=== PATIENT | male | born 1990 ===

== ENCOUNTER 2021-09-27 12:01 | Inpatient (IN) | payer MEDICAID ==
[~2021-09-27] VITALS: Ht 180.3 cm; Wt 154.9 kg
--- NOTE | 2021-09-27 12:00 | NUR ---
PT WAS A DIRECT ADMIT FROM [place] [facility]IA [facility], TOA WAS 1142. PER REPORT FROM EDUARDO ORTIZ, PT CAME TO [place] WITH C/O LEFT SHOULDER BLADE PAIN, WHO WAS THEN PLACED ON BIPAP, DECOMPENSATED ON BIPAP WITH SUSPECTED FLASH PULMONARY EDEMA, ASPIRATED AND THEN INTUBATED. VENT SETTINGS AT TIME OF REPORT WERE 24/580/8/98%. 8.0 PLACED AT 23 AT TEETH. COVID NEGATIVE. RT IJ TRIPLE LUMEN PLACED, AND IO IN PLACE, BLOOD CULTURES SENT. PT WAS GIVEN ATIVAN, KETAMINE, 40 LASIX AND 125 OF SOLUMEDROL. NO CTPE PERFORMED. FLAGYL GIVEN DURING [facility]. PT WAS METH POSITIVE WITH THEIR TOX SCREEN. PT WAS TRANSPORTED ON 40 OF PROPOFOL AND FENTANYL INFUSION. NO FAMILY CONTACTS AVAILABLE. PT HAS A HX OF SCHIZOPHRENIA, BIPOLAR, HTN PER REPORT. PT IS ALSO APPARENTLY FROM [place] BUT WAS USING "[facility]" IN [place]. PROPOFOL DRIP CONTINUED FROM TRANSPORTATION, NO SEDATION HOLIDAY DUE TO HIGH VENT SETTINGS PER . PT VENT SETTINGS AT TOA AC/VC 16/450/85%/12
[2021-09-27 15:32] LABS: PCO2 Arterial 58.5 mmHg (35-45); PO2 Arterial 53.5 mmHg (80-100); pH Blood Arterial 7.36 (7.35-7.45)
--- NOTE | 2021-09-27 15:44 | NUR ---
NOTIFIED OF ABG RESULTS, PO2 AT 53. VENT SETTINGS CHANGED TO 16/550/18/100%, NO PRONING AT THIS TIME. ACCEP[TABLE SPO2 88-90%
[2021-09-27 16:56] LABS: Influenza A, PCR NEGATIVE (NEGATIVE); Influenza B, PCR NEGATIVE (NEGATIVE); Resp Syncytial Virus, PCR NEGATIVE (NEGATIVE); SARS-Cov-2 (COVID-19) PCR, MMC NEGATIVE (NEGATIVE)
--- NOTE | 2021-09-27 18:01 | NUR ---
50 OF SATISH GIVEN
--- NOTE | 2021-09-27 19:00 | NUR ---
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 AT BEDSIDE MANAGING CODE AND MEDS GIVEN AT HIS VERBAL ORDER 1802 CPR 1804 1 EPI 1AMP BICARB 1805 RHYTHM CHECK- ASYSTOLE 1806 1 EPI 1AMP CALCIUM CHLORIDE 1807 RHYTHM CHECK- ASYSTOLE 1808 1 EPI 1809 1AMP BICARB 1810 EPI 1811 ROSC FOR 15 SECOND, RESUME CPR 1812 EPI 1813 RHYTHM CHECK- ASYSTOLE 1814 1AMP BICARB 1 EPI 1815 RHYTHM CHECK- ASYSTOLE 1816 1 EPI CALCIUM CHLORIDE 1817 RHYTHM- PEA 1818 1 EPI FLUID BOLUS NS 999ML/HR 1820 1 EPI RHYTHM CHECK-ASYSTOLE 1822 1 EPI PEA 1824 50MG TPA PUSH 1825 1 EPI 1826 RHYTHM CHECK- PEA, RESUME CPR 1827 1 EPI 17422 EPI, ROSC 1830 VTACH 200J SHOCK DELIVERED 1831 SHOCK 200J 1832 [id number], LOST PULSE, RESUMED CPR, 300 AMIO PUSH, 1 EPI 1835 1 EPI, ROSC 1837 1 EPI- EPI DRIP ORDERED
--- NOTE | 2021-09-27 19:53 | NUR ---
Pt transfer from [place] due to lack of critical care beds. no wallet or phone no next of kin provided. pt critically ill KPs score is 10%. pt went into cardiac arrest with mutiple restarts of cpr. Pt pulse regained after 30 minutes. With team discusion of pt vital and supportive need and medical history. Team meeting with icu alcs trained staff. DR motta and DR Gerardo, and this wirter representing the palliative and ethids discipline. Toby Baez of mission services notified of ethic consult. also review of [employer] statisitcs of survival post cpr. The [facility] directives for ethical care were also reviewed. With two physican attestation pt was made DNR. The statistical chance of meaniful survival is grim and pt prognosis is grim. Will continue to find next of kin and provide surrogate care to this unfornunate young man. [place] [facility] and support given to this unfortunte young man with no family. This plan supports [facility] ethics directive Number 3.
[2021-09-27 21:06] LABS: PCO2 Arterial 48.2 mmHg (35-45); PO2 Arterial 69.5 mmHg (80-100)
[2021-09-27 21:08] LABS: pH Blood Arterial 7.27 (7.35-7.45)
--- NOTE | 2021-09-27 21:21 | NUR ---
ASSUMED PT CARE AT 1845 ARRIVED IN ROOM AT 1830 DURING RESUSCITATION EFFORTS AND WHEN ROSC WAS OBTAINED. RECEIVED BEDSIDE REPORT FROM ANGEL JONES. PT INTUBATED AND NOT ON SEDATION AT THIS TIME. EPI GTT MAXED AT 20MCG/MIN WITH A WIDE OPEN BOLUS INFUSING WELL WITH NON-INVASIVE CUFF SHOWING SBP'S 120'S. DR. RODRIGUEZ AT BEDSIDE ATTEMPTING TO GET ART LINE PLACED. UNSUCCESSFUL R AXILLARY ATTEMPT; HOWEVER, SUCCESSFUL TO RIGHT FEMORAL SITE. LINE ZERO'D AT PHLEBOSTATIC AXIS WITH ELEVATED SBP'S 160'S-170'S. STARTED TURNING DOWN EPI WHEN IT WAS NOTED THAT PT WAS STARTING TO WAKE UP. COUGHING ON VENT AND MOVING EXTREMTIIES. WHEN ASKED PT TO LOOK AT ME HE WAS ABLE TO TURN HIS HEAD AND TRACK WITH HIS EYES. WHEN ASKED IF HE WAS IN PAIN HE NODDED HIS HEAD "YES". RESTARTED PROPFOL AT THIS TIME AT 40MCG/KG/MIN AND MEDICATED WITH A ONE TIME DOSE OF 100MCG OF FENTANYL. DR. RODRIGUEZ ENTERED ORDERS FOR CONTINUOUS FENTANYL GTT OF 50MCG/HR. PT APPEARS COMFORTABLE AT THIS TIME. VENT SETTINGS AC/VC 20, VT 550, PEEP 15, FIO2 100% WITH SPO2 90%. RR 20'S. PT NOTED TO BE SINUS TACHYCARDIA 100'S. PT IS VERY COLD AND PALE TO EXTREMITIES WITH DUSKY/CYANOTIC NAILBEDS. ABDOMEN NOTED TO BE MOTTLED FROM MID ABDOMEN/UMBILICUS AREA DOWN TO LOWER ABDOMEN. DOOLEY CATHETER IN PLACE WITH DARK YELLOW AND CLOUDY URINE WITH SEDIMENT NOTED, WELL BLOOD NOTED TO URINE WELL. PT ALSO BLEEDING FROM NARES S/P TPA ADMINISTRATION FROM CODE. PUPILS REMAIN EQUAL, ROUND, AND REACTIVE TO LIGHT, 3MM. NEW ORDERS FOR CT OF CHEST AND ABDOMEN TO RULE OUT BLEED S/P CARDIAC ARREST. SEE SHIFT ASSESSMENT FOR FURTHER DETAILS.
[2021-09-27 21:24] LABS: Hematocrit 50.9 % (37.0-53.0); Hemoglobin 15.6 g/dL (13.5-17.5); Mean Corpuscular HGB 29.3 pg (26.0-34.0); Mean Corpuscular HGB Conc 30.6 g/dL (31.5-36.5); Mean Corpuscular Volume 96 fL (80-100); Mean Platelet Volume 10.8 fL (9.1-12.4); NRBC ABSOLUTE 0.03 K/mm3 (0.00-0.02); NRBC Auto 0.3 /100 WBC (0.0-0.2); Platelet Count 299 K/mm3 (150-400); RDW Coefficient Variation 13.3 % (11.7-14.2); RDW Standard Deviation 47.3 fL (35.1-46.3); Red Blood Cell Count 5.32 M/mm3 (4.30-5.90); White Blood Cell Count 9.48 K/mm3 (4.00-11.30)
[2021-09-27 21:44] LABS: BAND PERCENT MAN 15 % (0-8); BASOPHILS PERCENT MAN 0 % (0-2); EOSINOPHILS ABSOLUTE MAN 0.18 K/mm3 (0.00-0.68); EOSINOPHILS PERCENT MAN 2 % (0-6); LYMPHOCYTES ABSOLUTE MAN 2.37 K/mm3 (0.84-5.20); LYMPHOCYTES PERCENT MAN 25 % (21-46); METAMYELOCYTE ABSOLUTE MAN 0.75 K/mm3 (0.00-0.00); METAMYELOCYTE PERCENT MAN 8 % (0-0); MONOCYTES ABSOLUTE MAN 0.56 K/mm3 (0.16-1.47); MONOCYTES PERCENT MAN 6 % (4-13); MYELOCYTE ABSOLUTE MAN 0.28 K/mm3 (0.00-0.00); MYELOCYTE PERCENT MAN 3 % (0-0); SEG NEUTROPHILS PERCENT MAN 41 % (41-73); TOTAL CELLS COUNTED 100
[2021-09-27 21:56] LABS: Alanine Aminotransfer (ALT/SGP 52 U/L (12-78); Albumin, Blood 2.7 g/dL (3.4-5.0); Albumin/Globulin Ratio 0.8 (0.8-1.8); Alk Phos 97 U/L (50-136); Anion Gap 17 mmol/L (6-16); Aspartate Aminotrans (AST/SGOT 58 U/L (12-37); Bilirubin, Direct <0.1 mg/dL (0.0-0.3); Bilirubin, Indirect Unable to Calculate mg/dL (0.1-0.7); Bilirubin, Total 0.3 mg/dL (0.1-1.0); Blood Urea Nitrogen 17 mg/dL (8-24); Bun/Creatinine Ratio 16.5 (12.0-20.0); CO2, Blood 25 mmol/L (21-32); Calcium, Blood 9.9 mg/dL (8.5-10.1); Chloride, Blood 100 mmol/L (98-108); Creatinine, Blood 1.03 mg/dL (0.60-1.20); Globulin, Blood 3.5 g/dL (2.2-4.0); Glomerular Filtration Rate 99 (60-); Glucose, Blood 312 mg/dL (70-99); Phosphorus, Blood 7.8 mg/dL (2.5-4.9); Potassium, Blood 3.4 mmol/L (3.5-5.5); Sodium, Blood 142 mmol/L (136-145); Total Protein, Blood 6.2 g/dL (6.4-8.2)
[2021-09-27 22:05] LABS: Source, Urine Foley catheter
[2021-09-27 22:07] LABS: Bilirubin, Urine Neg (Neg); Blood, Urine 5+ (Neg); Glucose Qualitative, Urine 3+ (Neg); Ketones, Urine 1+ (Neg); Leukocyte Esterase, Urine 2+ (Neg); Nitrite, Urine Neg (Neg); Protein, Urine 3+ (Neg); Specific Gravity, Urine 1.025 (1.003-1.022); Urobilinogen, Urine NORM (Normal)
--- NOTE | 2021-09-27 22:16 | NUR ---
SEDATION VACATION ATTEMPTED TO REASSES CODE STATUS D/T PT BEING ABLE TO NOD HEAD YES/NO TO PAIN EARLIER. HOWEVER, PT DID NOT TOLERATE SEDATION BEING OFF. CONTINUOUS COUGHING AND GAGGING NOTED ON THE TUBE. PT WOULD OPEN HIS EYES, BUT WOULD NOT FOLLOW COMMANDS. HE ATTEMPTED TO SELF EXTUBATE BY LEANING OVER TO HIS RIGHT SIDE AND FLEXING HIS WRIST DESPITE BEING IN RESTRAINTS. MOVED RESTRAINT FURTHER DOWN THE BED AND MEDICATED ADJUNCTIVELY WITH FENTANYL AND RESTARTED PROPOFOL. OXYGEN SATURATIONS DROPPED TO THE 70'S, BUT PT SLOWLY RECOVERED.
[2021-09-27 22:20] LABS: Appearance, Urine Cloudy (Clear); Color, Urine Red (P-Yellow)
[2021-09-27 22:25] LABS: Amorphous Mod (0-Heavy); Bacteria Mod /hpf; Granular Casts TNTC /lpf (0); Red Blood Cells, Urine TNTC /hpf (0-2); Squamous Epithelial Cells Not Seen /hpf (Few); White Blood Cells, Urine 25-50 /hpf (0-5)
[2021-09-28 00:37] LABS: PCO2 Arterial 35.1 mmHg (35-45); PO2 Arterial 73.2 mmHg (80-100); pH Blood Arterial 7.37 (7.35-7.45)
[2021-09-28 03:21] LABS: Hematocrit 43.4 % (37.0-53.0); Hemoglobin 14.2 g/dL (13.5-17.5); Mean Corpuscular HGB 29.6 pg (26.0-34.0); Mean Corpuscular HGB Conc 32.7 g/dL (31.5-36.5); Mean Corpuscular Volume 90 fL (80-100); Mean Platelet Volume 10.1 fL (9.1-12.4); Platelet Count 360 K/mm3 (150-400); RDW Coefficient Variation 13.2 % (11.7-14.2); RDW Standard Deviation 44.4 fL (35.1-46.3); White Blood Cell Count 26.71 K/mm3 (4.00-11.30)
[2021-09-28 03:40] LABS: BAND PERCENT MAN 4 % (0-8); BASOPHILS PERCENT MAN 0 % (0-2); EOSINOPHILS PERCENT MAN 0 % (0-6); LYMPHOCYTES ABSOLUTE MAN 1.33 K/mm3 (0.84-5.20); LYMPHOCYTES PERCENT MAN 5 % (21-46); METAMYELOCYTE ABSOLUTE MAN 0.26 K/mm3 (0.00-0.00); METAMYELOCYTE PERCENT MAN 1 % (0-0); MONOCYTES PERCENT MAN 12 % (4-13); SEG NEUTROPHILS PERCENT MAN 78 % (41-73); TOTAL CELLS COUNTED 100
[2021-09-28 03:42] LABS: Albumin, Blood 2.9 g/dL (3.4-5.0); Anion Gap 14 mmol/L (6-16); Blood Urea Nitrogen 26 mg/dL (8-24); Bun/Creatinine Ratio 22.8 (12.0-20.0); CO2, Blood 24 mmol/L (21-32); Calcium, Blood 8.3 mg/dL (8.5-10.1); Chloride, Blood 98 mmol/L (98-108); Creatinine, Blood 1.14 mg/dL (0.60-1.20); Glomerular Filtration Rate 88 (60-); Glucose, Blood 398 mg/dL (70-99); Phosphorus, Blood 3.7 mg/dL (2.5-4.9); Potassium, Blood 4.3 mmol/L (3.5-5.5); Sodium, Blood 136 mmol/L (136-145)
[2021-09-28 04:35] LABS: PCO2 Arterial 42.8 mmHg (35-45); PO2 Arterial 119 mmHg (80-100); pH Blood Arterial 7.38 (7.35-7.45)
--- NOTE | 2021-09-28 05:16 | NUR ---
BLOOD SUGAR CALL OUT TO DR. LUA REGARDING ELEVATED BLOOD SUGAR OF 398 WITH NO COVERAGE. NEW ORDERS FOR 10 UNITS OF LANTUS NOW.
--- NOTE | 2021-09-28 06:40 | NUR ---
END OF SHIFT SUMMARY. PT IS ON PROPOFOL 30 MCG/KG/MIN, DURING SEDATION VACATION HE MOVES ALL EXTREMETIES, INCLUDING KICKING LEGS, NODS HEAD TO PAIN, AND ATTEMPTS TO SELF EXTUBATE BY QUICKLY LEANING UPPER BODY TOWARDS RESTRAINED HANDS. PT'S EPI DRIP IS NOW OFF, BP IS 117/71 AND HR 97. PT IS ON VENT A/C 20, 550, 100%, PEEP 15. HE IS ON A FENTANYL DRIP AT 50 MCG/HR. HIS SPO2 READING IS 100%. PT HAS AN NG TUBE TO INTERMITTENT SUCTION, DRAINING DARK RED SUBSTANCE. PT'S NOSE WAS BLEEDING. PT'S DOOLEY IS PATENT AND DRAINING BLOODY HEAVILY SEDIMENTED CLOUDY URINE TO GRAVITY. PT HAS BATISTA NOTED TO CHEST FROM DEFIBRILLATION, SCATTERED SCABS, AND MOTTLING TO MID-LOWER ABD. GRAVITY. REPORT HANDED OFF TO ANGEL CHOWDHURY.
--- NOTE | 2021-09-28 07:36 | NUR ---
TOOK OVER CARE OF PT AT 0700, PT VENTED ON ACVC 20/550/100%/15, PROPOFOL AT 30, FENTANYL DRIP AT 90. PER REPORT EPI DRIP HAS BEEN OF SINCE ABOUT 0430, AND CT COMPLETED BUT ONLY HALF DOSE OF CONTRAST GIVEN DUE TO SHORTAGE. 07 RT TITRATED VENT TO 80% FiO2
--- NOTE | 2021-09-28 09:19 | NUR ---
Pt intubated with Primary RN accessing Pt. Reviewed plan of care with Primary RN. Pt just starting sedation vacation. Pt following some commands. Palliative Care will remain available.
--- NOTE | 2021-09-28 09:23 | NUR ---
Reviewed chart, discussed case with Primary RN Sandy and Dr Mckeon. Pt down to 2 pressors and continuing to titrate those down. Dr Mckeon reports family may benefit from advanced care planning. Attempted to contact Pt's sister Flor. Left message with request for a return phone call. Palliative Care will remain available.
--- NOTE | 2021-09-28 10:20 | NUR ---
RT TITRATED PT DOWN TO 50% FiO2 ON VENT
--- NOTE | 2021-09-28 11:00 | NUR ---
FiO2 TITRATED UP TO 60%
[2021-09-28 13:29] LABS: Vancomycin, Trough 10.4 ug/mL (5.0-10.0)
--- NOTE | 2021-09-28 15:54 | NUR ---
REQUESTED BLOOD CULTURES AND ANY OTHER CULTURES FROM [facility] TO BE FAXED OVER. THEIR LAB CONTACT @ IS [phone]
--- NOTE | 2021-09-28 17:32 | NUR ---
SUMMARY PT VENTED ACVC 20/550/60%/13, PROPOFOL 30MCG, FENT 50MCG INFUSION NEURO- PT FOLLOWING COMMANDS ON SEDATION, EQUAL IN ALL EXTREMETIES, STRENGTH INCREASING THROUGHOUT DAY, NODDING HEAD TO QUESTIONS, OPENING EYES WITH STIMULATION, BRAIN STEM REFLEXES IN PLACE. CARDIAC; PT IS NOW SINUS TACHY, 110-115 FROM 80'S ON ADMIT. DECREASED BLOOD PRESSURES NOTED WHEN PT PLACED ON LEFT SIDE, NO PRESSURE SUPPORT NEEDED DURING SHIFT. EXTREMETIES STILL COOL AND CYANOTIC BUT DOPPLER PULSES PRESENT. LUNGS; RHONCHI UPPER LOBES, DIMINISHED BASES. PT HAS BEEN LAVAGED NEEDED. COPIOUS TUBBS/GREEN ET SECRETIONS. NOSE STILL HAS SOME BLEEDING. Q2 ORAL CARE AND SUCTIONING COMPLETED. ETT ADVANCED TO 26 AT THE TEETH. SKIN: MOTTLING DECREASED. HANDS AND FEET COOL. DARK BLUE/GREEN HAIR DYE NOTED DURING BATH- MATCHING STAINING OF PT'S TOENAILS. ; LOW OUTPUT, HARPREET URINE GI;VIATL HP TF STARTED, RUNNING AT 25, GOAL OF 45
--- NOTE | 2021-09-28 19:00 | NUR ---
ASSUMED CARE PATIENT LYING IN BED INTUBATED AND SEDATED WITH PROPOFOL @ 20 MCG/KG/MIN AND FENTANYL DRILLING PLANT OPERATOR @ 50MCG/HR. NS TKO, NS @ 40ML/HR TO RT IJ CL. EPI OFF AND DISCONNECTED. RT FEMORAL ART LINE PATENT. VENT SETTINGS AC/VC 20/550/13/60% W/ SPO2 GREATER THAN 90%. VHP VIA NGT @ 25ML/HR WITH GOAL RATE 45ML/HR. TEMP DOOLEY PATENT AND DRAINING TO GRAVITY. REPORT COMPLETED WITH ANGEL JONES.
[2021-09-29 04:14] LABS: Albumin, Blood 2.5 g/dL (3.4-5.0); Anion Gap 6 mmol/L (6-16); Blood Urea Nitrogen 26 mg/dL (8-24); Bun/Creatinine Ratio 29.6 (12.0-20.0); CO2, Blood 31 mmol/L (21-32); Calcium, Blood 7.9 mg/dL (8.5-10.1); Chloride, Blood 100 mmol/L (98-108); Creatinine, Blood 0.88 mg/dL (0.60-1.20); Glomerular Filtration Rate 117 (60-); Glucose, Blood 175 mg/dL (70-99); Phosphorus, Blood 2.9 mg/dL (2.5-4.9); Sodium, Blood 137 mmol/L (136-145)
--- NOTE | 2021-09-29 06:42 | NUR ---
SHIFT SUMMARY PATIENT REMAINED INTUBATED AND SEDATED. PATIENT DID NOT OPEN EYES OR FOLLOW COMMANDS. GRIMACES AND WITHDRAWS FROM PAINFUL STIMULI. PATIENT EXHIBITED ABNORMAL BREATHING PATTERN LIKELY DUE TO PAIN. FENTANYL INCREASED FROM 50MCG/HR TO 100MCG/HR CONTINUOUS PARTS COUNTERMAN WITH RESOLUTION OF ABNORMAL BREATHING PATTERN. INCREASED SEDATION ATTEMPTED FIRST WITH PROPOFOL @ 60MCG/KG/MIN, FENTANYL, VERSED, AND HALDOL PUSHES, AND STARTED VERSED NOW INF @ 4MCG/HR. PRECEDEX ORDERED AND IN THE FRIDGE, BUT NOT STARTED AT THIS TIME. NO OTHER CHANGES DURING SHIFT.
--- NOTE | 2021-09-29 07:00 | NUR ---
TOOK OVER CARE OF PT AT 0700, PT VENTED A/C VC 20/550/60%/13, PT SEDATED WITH 60MCG OF PROPOFOL, 4MG OF VERSED, AND 100MCG OF FENTANYL. PER REPORT ONLY 200-250ML OF URINE OUT. PT WAS VERY AGITATED IF THE PT WAS IN PAIN AND BEARING DOWN CAUSING ASYNCHRONY WITH THE VENT, PT ALSO BECAME HYPERTENSIVE.
[2021-09-29 07:58] LABS: BASOPHILS ABSOLUTE AUTO 0.03 K/mm3 (0.00-0.23); BASOPHILS PERCENT AUTO 0 % (0-2); EOSINOPHILS ABSOLUTE AUTO 0.14 K/mm3 (0.00-0.68); EOSINOPHILS PERCENT AUTO 1 % (0-6); Hematocrit 34.9 % (37.0-53.0); Hemoglobin 11.6 g/dL (13.5-17.5); IMMATURE GRAN PERCENT AUTO 1 % (0-1); LYMPHOCYTES ABSOLUTE AUTO 2.14 K/mm3 (0.84-5.20); LYMPHOCYTES PERCENT AUTO 11 % (21-46); MONOCYTES ABSOLUTE AUTO 2.35 K/mm3 (0.16-1.47); MONOCYTES PERCENT AUTO 12 % (4-13); Mean Corpuscular HGB 29.7 pg (26.0-34.0); Mean Corpuscular HGB Conc 33.2 g/dL (31.5-36.5); Mean Corpuscular Volume 89 fL (80-100); Mean Platelet Volume 10.1 fL (9.1-12.4); NEUTROPHILS PERCENT AUTO 76 % (41-73); Platelet Count 254 K/mm3 (150-400); RDW Coefficient Variation 13.7 % (11.7-14.2); RDW Standard Deviation 44.7 fL (35.1-46.3); Red Blood Cell Count 3.91 M/mm3 (4.30-5.90); White Blood Cell Count 19.96 K/mm3 (4.00-11.30)
[2021-09-29 08:59] LABS: Source, Urine Foley catheter
[2021-09-29 09:05] LABS: Bilirubin, Urine Neg (Neg); Blood, Urine 4+ (Neg); Color, Urine Yellow (P-Yellow); Glucose Qualitative, Urine Neg (Neg); Ketones, Urine Neg (Neg); Leukocyte Esterase, Urine 1+ (Neg); Nitrite, Urine Neg (Neg); Protein, Urine 2+ (Neg); Urobilinogen, Urine NORM (Normal)
[2021-09-29 09:17] LABS: Appearance, Urine Hazy (Clear)
[2021-09-29 09:22] LABS: Bacteria Few /hpf; Red Blood Cells, Urine TNTC /hpf (0-2); Squamous Epithelial Cells Not Seen /hpf (Few)
--- NOTE | 2021-09-29 09:23 | NUR ---
CLOGGED DOOLEY PT WAS FOUND TO HAVE TO URINE IN DOOLEY BAG AT 0715, NO URINE AT 0800. DENSE SEDIMENT NOTED IN TUBING PROXIMAL TO MEATUS. SPOKE WITH , UNABLE TO FLUSH DOOLEY, GAVE OKAY TO CHANGE. AFTER REMOVAL OF PREVIOUS DOOLEY, URINE SOAKED ONE COVIDEAN AND 500ML QUICKLY FILLED NEW DOOLEY BAG. UA SENT, SEDIMENT AND HARPREET URINE NOTED. PT NOW Q6 BLADDER SCAN WELL.
[2021-09-29 09:27] LABS: Uric Acid Crystals Mod /hpf
[2021-09-29 13:33] LABS: Vancomycin, Trough 9.4 ug/mL (5.0-10.0)
--- NOTE | 2021-09-29 18:45 | NUR ---
SUMMARY NEURO- NO SEDATION HOLIDAY DUE TO HIGH VENT SETTINGS AND PT AGITATION , STILL SOME PURPOSEFUL MOVEMENT, BRAIN STEM REFLEXES IN TACT, PINPOINT PUPILS. CARDIAC; SINUS TO SINUS TACH THROUGHOUT DAY. BLE STILL DOPPLER PULSES, COLOR IMPROVING. ACETONE USED ON TOENAILS TO REMOVE DYE FROM THEM. BROWN DISCOLORATION ON BLE STILL PRESENT. HANDS ARE NO LONGER COOL AND DUSKY BUT SWOLLEN AND WARM. SYSTOLIC 120'S-150'S. LUNGS: CLEAR, DIMINISHED BASES. LARGE AMOUNT OF THICK TUBBS SECRETIONS WHEN LAVAGED SUCTIONING. VENT A/C VC 20/550/80%/13. NOSE IS STILL OOZING BLOOD. INTERMITTENT CUF LEAKS, RT AND PROVIDER AWARE GI; ABSENT BOWEL SOUNDS, NO FLAUTUS OR BM. ABD DISTENDED AND FIRM, LOW RESIDUALS BUT NG COULD HAVE BEEN STUCK ON STOMACH WALL. TUBE FEEDS RUNNING AT GOAL. : DOOLEY CHANGED DUE TO BEING CLOGGED. HARPREET URINE WITH SEDIMENT. SKIN; COLOR IMOPROVING THROUGHOUT
--- NOTE | 2021-09-29 19:18 | NUR ---
ASSUMED CARE OF PT AT 1915. PT IS ON VENTILATOR A/C 20, 550, 80%, PEEP 13 WITH SPO2 97%. HE HAS PROPOFOL INFUSING AT 60 MCG/KG/MIN, HE IS RESTING QUIETLY. IV FLUIDS AT 50 ML/HR, MIDAZOLAM AT 4 MG/HR, AND FENTANYL VIA CONTINUOUS INFUSION AT 100 MCG/HR. PT IS CURRENTLY IN SINUS TACHYCARDIA WITH HR 108 AND 139/80 BP. SEE SHIFT SUMMARY FOR FURTHER DETAILS.
[2021-09-30 03:41] LABS: BASOPHILS ABSOLUTE AUTO 0.05 K/mm3 (0.00-0.23); BASOPHILS PERCENT AUTO 0 % (0-2); EOSINOPHILS ABSOLUTE AUTO 0.25 K/mm3 (0.00-0.68); EOSINOPHILS PERCENT AUTO 1 % (0-6); Hematocrit 34.6 % (37.0-53.0); Hemoglobin 11.3 g/dL (13.5-17.5); IMMATURE GRAN ABSOLUTE AUTO 0.15 K/mm3 (0.00-0.10); IMMATURE GRAN PERCENT AUTO 1 % (0-1); LYMPHOCYTES ABSOLUTE AUTO 2.26 K/mm3 (0.84-5.20); LYMPHOCYTES PERCENT AUTO 13 % (21-46); MONOCYTES ABSOLUTE AUTO 1.78 K/mm3 (0.16-1.47); MONOCYTES PERCENT AUTO 10 % (4-13); Mean Corpuscular HGB 29.5 pg (26.0-34.0); Mean Corpuscular HGB Conc 32.7 g/dL (31.5-36.5); Mean Corpuscular Volume 90 fL (80-100); Mean Platelet Volume 9.8 fL (9.1-12.4); NEUTROPHILS ABSOLUTE AUTO 12.96 K/mm3 (1.96-9.15); NEUTROPHILS PERCENT AUTO 74 % (41-73); Platelet Count 263 K/mm3 (150-400); RDW Coefficient Variation 13.5 % (11.7-14.2); RDW Standard Deviation 44.6 fL (35.1-46.3); Red Blood Cell Count 3.83 M/mm3 (4.30-5.90); White Blood Cell Count 17.45 K/mm3 (4.00-11.30)
[2021-09-30 03:59] LABS: Albumin, Blood 2.5 g/dL (3.4-5.0); Anion Gap 5 mmol/L (6-16); Blood Urea Nitrogen 19 mg/dL (8-24); Bun/Creatinine Ratio 26.5 (12.0-20.0); CO2, Blood 29 mmol/L (21-32); Calcium, Blood 7.8 mg/dL (8.5-10.1); Chloride, Blood 100 mmol/L (98-108); Creatinine, Blood 0.72 mg/dL (0.60-1.20); Glomerular Filtration Rate 124 (60-); Glucose, Blood 152 mg/dL (70-99); Phosphorus, Blood 3.2 mg/dL (2.5-4.9); Potassium, Blood 4.1 mmol/L (3.5-5.5); Sodium, Blood 134 mmol/L (136-145); Triglycerides 263 mg/dL (30-140)
--- NOTE | 2021-09-30 05:26 | NUR ---
END OF SHIFT SUMMARY: NEURO - UNABLE TO PERFORM SEDATION VACATION DUE TO PATIENT INSTABILITY AND INCREASE IN VENTILATOR SETTING. HEAVILY SEDATED WITH NO RESPONSE TO ANY PAINFUL STIMULI. PERRLA 2. RESP - CALLED MD (DR. RODRIGUEZ) OVERNIGHT TO VERIFY ETT PLACEMENT AND NEW XRAY ORDER PLACED FOR 0500. AFTER ETT SUCTIONING, PT DOES COUGH, QUICKLY DESATS DOWN TO LOW 80%'s AND STOPS PULLING VOLUMES. PER MD RODRIGUEZ, PEEP INCREASED TO 18 OVERNIGHT AND IF ABLE, TITRATE FIO2 DOWN. CURRENT VENT SETTINGS ARE: AC/VC - RATE 20, VOLUME 550, FIO2 60%, PEEP 18. XRAY WAS DONE THIS MORNING, PT DID DESAT DOWN TO MID 70%'s, SLOWLY RECOVERED WITH AN INCREASE IN FIO2 TO 100% FOR 5 MINUTES, ABLE TO KEEP FIO2 AT 60% AFTER XRAY. MINIMAL SECRETIONS OVERNIGHT. CARDIAC - FEBRILE OVERNIGHT, TMAX 101.1 - PLACED ICE PACKS ON PATIENT, AND FAN IS ON TO KEEP TEMP DOWN. CURRENT CORE TEMP PER DOOLEY IS 99.6F. WHEN PT IS COUGHING AND NOT MAINTAINING VOLUMES, PT's BP SIGNIFICANTLY DROPS TO SBP 80-100's WITH MAP 50-60's. BP DOES RECOVER ONCE PT IS ABLE TO PULL VOLUMES. ART LINE REMAINS PATENT AND WNL. EDEMATOUS. GI/ - NO BM OVERNIGHT. ABDOMEN FIRM WITH ABSENT BOWEL SOUNDS. DOOLEY REMAINS PATENT, URINE OUTPUT GREENISH BROWN WITH SEDIMENTS. BLADDER SCAN SHOWED 0 ML X2. TF REMAINS INFUSING WITH LITTLE TO NO RESIDUALS. CBG Q6. INTEG - PER MD, MINIMIZE SIGNIFICANT REPOSITIONING AND ROM OVERNIGHT DUE TO UNSTABLE ETT AND INCREASE IN PEEP. UNABLE TO REPOSITION PT BUT WAS ABLE TO DO MINOR ROM ON ALL EXTREMITIES. INFUSIONS - PROPOFOL, FENT VARITYPIST, VERSED, NORMAL SALINE
--- NOTE | 2021-09-30 07:00 | NUR ---
ASSUME CARE: I have assumed care of this patient.
--- NOTE | 2021-09-30 09:50 | NUR ---
TURN: Four staff members at bedside to assist with turn for visualization of back. Mepilex dressing was pulled back to visualize skin on coccyx. No breakdown noted. Heel protectors placed by REPAIR SERVICER and heels floated.
--- NOTE | 2021-09-30 12:47 | NUR ---
SEDATION VACATION: Discussed sedation vacation with Dr Wiggins; will forgo today as pt becomes asynchronous with vent when stimulated for turns.
--- NOTE | 2021-09-30 15:14 | NUR ---
FIO2: RT at bedside. Pt's fio2 increased from 40-80% for the last turn. Discussed with Dr Wiggins possible need to paralyze pt; agreed to turn q 4 hrs instead.
--- NOTE | 2021-09-30 19:42 | NUR ---
SHIFT SUMMARY: Neuro: Pt sedated with propofol at 60, fentanyl at 100 mcg/hr, and versed at 4mg/hr. Pupils are reactive. Sedation vacation held per MD request. Bilateral wrist restraints in place to prevent self extubation. Cardiac: bp stable throughout day; NSR in 80's Respiratory: ETT 8.0, 25 at teeth. Vent settings AC/VC 20/550/18/65% lung sounds CTA GI/: Tube feeds decreased to 20 mls/hr with q 4 hr free water flushes. Bowel tones hypoactice. No BM Skin: no new skin breakdown
[2021-10-01 04:39] LABS: Base Excess Venous 5.9 mmol/L; Bicarbonate Venous 29.4 mmol/L (24.0-30.0); PCO2 Venous 39.4 mmHg (38-42); PO2 Venous 112 mmHg (38-42); pH Blood Venous 7.48 (7.34-7.37)
[2021-10-01 04:41] LABS: BASOPHILS ABSOLUTE AUTO 0.04 K/mm3 (0.00-0.23); BASOPHILS PERCENT AUTO 0 % (0-2); EOSINOPHILS ABSOLUTE AUTO 0.23 K/mm3 (0.00-0.68); EOSINOPHILS PERCENT AUTO 2 % (0-6); Hematocrit 32.4 % (37.0-53.0); Hemoglobin 10.8 g/dL (13.5-17.5); IMMATURE GRAN ABSOLUTE AUTO 0.29 K/mm3 (0.00-0.10); IMMATURE GRAN PERCENT AUTO 2 % (0-1); LYMPHOCYTES ABSOLUTE AUTO 1.44 K/mm3 (0.84-5.20); LYMPHOCYTES PERCENT AUTO 11 % (21-46); MONOCYTES ABSOLUTE AUTO 1.27 K/mm3 (0.16-1.47); MONOCYTES PERCENT AUTO 9 % (4-13); Mean Corpuscular HGB 29.9 pg (26.0-34.0); Mean Corpuscular HGB Conc 33.3 g/dL (31.5-36.5); Mean Corpuscular Volume 90 fL (80-100); Mean Platelet Volume 9.8 fL (9.1-12.4); NEUTROPHILS ABSOLUTE AUTO 10.43 K/mm3 (1.96-9.15); NEUTROPHILS PERCENT AUTO 76 % (41-73); Platelet Count 262 K/mm3 (150-400); RDW Coefficient Variation 13.3 % (11.7-14.2); RDW Standard Deviation 44.4 fL (35.1-46.3); Red Blood Cell Count 3.61 M/mm3 (4.30-5.90)
[2021-10-01 05:09] LABS: Bun/Creatinine Ratio 27.9 (12.0-20.0); Calcium, Blood 7.8 mg/dL (8.5-10.1); Creatinine, Blood 0.72 mg/dL (0.60-1.20); Phosphorus, Blood 3.7 mg/dL (2.5-4.9); Potassium, Blood 3.7 mmol/L (3.5-5.5)
--- NOTE | 2021-10-01 05:55 | NUR ---
END OF SHIFT SUMMARY: NEURO - UNABLE TO PERFORM SEDATION VACATION - TOO UNSTABLE HEMODYNAMICALLY. NO CHANGES WITH SEDATION INFUSIONS. PERRLA @ 2. NO RESPONSE TO PAINFUL STIMULI. DOES COUGH SPONTENOUSLY EVEN WITHOUT STIMULATION. RESP - REMAINS INTUBATED, DOES HAVE BRONCHOSPAMS WHERE PT BECOMES ASYNCHRONOUS WITH THE VENTILATOR, STOPS PULLING VOLUMES IF PT HOLDING BREATHE. WHEN PT HAS THIS EPISODE, O2 DROPS SIGNIFICANTLY ALONGSIDE BP. ALSO FREQUENT INTERMITTENT AIR LEAK FROM ETT. PT DOES EVENTUALLY STOP AND START SYNCHRONIZING WITH THE VENTILATOR. SMALL TO MODERATE SECRETIONS FROM ETT AND MOUTH (YELLOW/WHITE THICK). VENT SETTINGS: AC/VC RR 20, VOLUME 550, FIO2 60%, PEEP 18 CARDIAC - AFEBRILE. WHEN PT STARTS COUGHING, VOLUMES DROP AND HIGH PEAK PRESSURE ALARMS ON VENTILATOR, PT BECOMES HYPOTENSIVE PER ART LINE WITH SBP IN THE 80/90 WITH MAP IN THE 50's. BP RECOVERS ONCE PT STOPS COUGHING. EDEMATOUS. NO VASOPRESSORS REQUIRED. GI/ - NO BM. BOWEL SOUNDS ARE HYPOACTIVE, ABDOMEN FIRM. DOOLEY CATH PATENT, DRAININ TO GRAVITY AND URINE OUTPUT GREENISH/BROWN WITH SEDIMENTS. TF REMAINS INFUSING 20 ML/HR WITH NO RESIDUALS NOTED. Q6 CBG, NO INSULIN GIVEN. INTEG - Q4 REPOSITION PER MD DUE TO ETT UNSTABLE, FREQUENT CUFF LEAK WITH MOVEMENT AND HEMODYNAMICALLY INSTABILITY. ABLE TO GIVE PARTIAL BED BATH BUT UNABLE TO TURN PT TO FULLY ASSESS PT SKIN IN DETAIL. INFUSIONS - PROPOFOL, FENTANYL ABAP DEVELOPER, VERSED, NORMAL SALINE
--- NOTE | 2021-10-01 08:41 | NUR ---
ASSUMED CARE REPORT FROM LEESA RN AT 0700. PT INTUBATED AND SEDATED. VENT SETTINGS AC/VC 20/550/18/50%. LUNGS CLEAR THROUGHOUT. SCANT SECRETIONS THROUGH ETT, CLEAR, THIN. NO COUGH/GAG/SWALLOW REFLEX. PT HEAVILY SEDATED FOR VENT COMPLIANCE AND ETT LEAK PER GRAHAM RN. NO SEDATION SHWETA AND Q4 TURNS PER DR PEARSON. PROPOFOL, FENTANYL AND VERSED GTT INFUSING AT SHIFT CHANGE, ADDED PRECEDEX, CURRENTLY TITRATING PROPOFOL DOWN. SR ON MONITOR, RATE 80'S. BP STABLE. PT P/W/D. 1+ EDEMA TO EXT. DIURESED THIS AM. DOOLEY PATENT, DRAINING GREEN/YELLOW URINE c SEDIMENT TO GRAVITY. NGT TO RIGHT NARE, TUBE FEEDS AT GOAL, 20 ML/HR c 30 ML FLUSHES q4 HR. RESIDUALS 20 ML THIS AM. ABD SOFT, DISTENDED, BT HYPOACTIVE. BOWEL CARE STARTED THIS SHIFT. ART LINE TO RIGHT GROIN, FLUSHED, ZERO'D, CVC TO RIJ, DRESSINGS C/D/I. PT TURNED c LIFT, PREOXYGENATED, NO DESATURATION NOTED. WILL CONTINUE TO MONITOR.
--- NOTE | 2021-10-01 17:25 | NUR ---
SHIFT SUMMARY PT REMAINS INTUBATED AND SEDATED. VENT SETTINGS AC/VC 20/550/18/60%. LUNGS CLEAR. INCREASE IN SECRETIONS THIS SHIFT. THICK TUBBS/YELLOW. SEDATION DECREASED, PROPOFOL, PRECEDEX AND FENTANYL INFUSING, VERSED ON STANDBY. PT HAS COUGH REFLEX, NO GAG/SWALLOW. OCCASIONALLY OPENS EYES TO PRESSURE, NO TRACKING. DOES NOT FOLLOW COMMANDS. TURNED q4, PREOXYGENATED, DID NOT DESAT. OCCASIONAL COUGHING AND HIGH PEAK PRESSURES. BP STABLE, ART LINE TO RIGHT GROIN, DRESSING C/D/I. NSR, RATE 80'S. TUBE FEEDS INCREASED TO 35 ML/HR, MINIMAL RESIDUALS. NO BM THIS SHIFT. DOOLEY PATENT, 1600 ML GREEN/YELLOW URINE c SEDIMENT OUT. TMAX 101.0, TYLENOL GIVEN. WILL CONTINUE TO MONITOR UNTIL REPORT TO ONCOMING NURSE.
--- NOTE | 2021-10-01 21:25 | NUR ---
PROGRESS NOTE: AT AROUND 1999, PT STARTED COUGHING, WAKING UP AND DESATTING. RT AT BEDSIDE AND WAS ABLE TO SUCTION AND LAVAGE PT ETT. LARGE TO MODERATE AMOUNTS TO THICK YELLOW SECRETIONS FROM ETT SUCTIONING. PT REQUIRING TO BE ON 100% FIO2 FOR ABOUT 5 TO 10 MINS. AND SLOWLY RECOVERED WITH AN INCREASE IN PROPOFOL. DURING THIS EPISODE, PT DID NOT FOLLOW COMMANDS, OPENED EYES TO PRESSURE AND PAIN. BP DID DROP SIGNIFICANTLY, ART LINE BP READING SBP 80-70 WITH MAP DOWN TO LOW 50's PLACED A CALL TO DR PEARSON REGARDING THIS EVENT. ORDERED A SPUTUM CULTURE, CONTINUE TO TITRATE PROPOFOL DOWN DUE TO HIGH TRIGLYCERIDES, CAN TITRATE PRECEDEX AND VERSED UP IF NEEDING AN INCREASE IN SEDATION.
--- NOTE | 2021-10-01 22:29 | NUR ---
PROGRESS NOTE: TUBE FEEDING TURNED OFF AT 1999 DUE TO HIGH RESIDUALS (250 ML - REINSTILLED). CHECKED RESIDUALS AT 2230 TOTAL WAS 60 ML. RESTARTED TUBE FEEDING AT 20 ML/HR. GAVE PT A FULL BED BATH WITH COMPLETE LINEN CHANGE. PT DID DESATURATE AFTER BIG TURN. CURRENT SETTINGS ARE: VC/AC RR 20 VOLUME 550 FIO2 100% PEEP 18. PT OXYGENSATURATION SLOWLY IMPROVING, NOW AT 87%. RT WAS ABLE TO CHANGE ETT MASETRSON AND BITE BLOCK @ 2200. NO ISSUES WITH THE CHANGE.
[2021-10-02 03:00] LABS: BASOPHILS ABSOLUTE AUTO 0.06 K/mm3 (0.00-0.23); BASOPHILS PERCENT AUTO 1 % (0-2); EOSINOPHILS ABSOLUTE AUTO 0.18 K/mm3 (0.00-0.68); EOSINOPHILS PERCENT AUTO 1 % (0-6); Hematocrit 32.8 % (37.0-53.0); Hemoglobin 10.9 g/dL (13.5-17.5); IMMATURE GRAN ABSOLUTE AUTO 0.31 K/mm3 (0.00-0.10); IMMATURE GRAN PERCENT AUTO 3 % (0-1); LYMPHOCYTES ABSOLUTE AUTO 1.58 K/mm3 (0.84-5.20); LYMPHOCYTES PERCENT AUTO 13 % (21-46); MONOCYTES ABSOLUTE AUTO 1.33 K/mm3 (0.16-1.47); MONOCYTES PERCENT AUTO 11 % (4-13); Mean Corpuscular HGB 29.3 pg (26.0-34.0); Mean Corpuscular HGB Conc 33.2 g/dL (31.5-36.5); Mean Corpuscular Volume 88 fL (80-100); Mean Platelet Volume 9.7 fL (9.1-12.4); NEUTROPHILS ABSOLUTE AUTO 9.01 K/mm3 (1.96-9.15); NEUTROPHILS PERCENT AUTO 72 % (41-73); Platelet Count 305 K/mm3 (150-400); RDW Coefficient Variation 13.3 % (11.7-14.2); RDW Standard Deviation 43.5 fL (35.1-46.3); Red Blood Cell Count 3.72 M/mm3 (4.30-5.90); White Blood Cell Count 12.47 K/mm3 (4.00-11.30)
[2021-10-02 03:15] LABS: Magnesium, Blood 2.2 mg/dL (1.6-2.4)
[2021-10-02 03:16] LABS: Bun/Creatinine Ratio 32.3 (12.0-20.0); Calcium, Blood 8.1 mg/dL (8.5-10.1); Creatinine, Blood 0.84 mg/dL (0.60-1.20); Phosphorus, Blood 3.9 mg/dL (2.5-4.9); Potassium, Blood 3.8 mmol/L (3.5-5.5)
--- NOTE | 2021-10-02 05:49 | NUR ---
SHIFT SUMMARY: NEURO - ABLE TO TITRATE PROPOFOL DOWN TO 25 MCG/KG/MIN, INCREASED VERSED TO 6 MG/HR AND PRECEDEX TO 1.4 MCG/KG/HR. PT DID WAKE UP ONCE AND WAS ABLE TO FOLLOW COMMANDS BUT IMMEDIATELY BECAME AGITATED AND THRASHING - THIS HAPPENED BEFORE TRANSITIONING SEDATION MEDS TO CURRENT SETTINGS. PT DID EVENTUALLY STOPPED AND IS NOW ADEQUATELY SEDATED. PERRLA @ 3. RESP - VENT SETTINGS: AC/VC RR 20 VOLUME 550 PEEP 18 FIO2 100% CARDIAC - FEBRILE WITH TMAX 102.5 PER TEMP SENSING DOOLEY. ICE PACKS, FAN AND PRN TYLENOL GIVEN. NOTIFIED MD AND CHANGED PT ANTIBIOTICS AND SNEHAL BLOOD CULTURES. EDEMATOUS. DOPPLER PEDAL PULSES. GI/ - NO BM. TF INFUSING NOW AT 20 ML/HR. IRRIGATED DOOLEY CATHETER, PATENT. INTEG - ABLE TO TURN PT Q2H WITH LIFT. SKIN HAS NO CHANGES FROM PREVIOUS ASSESSMENTS.
--- NOTE | 2021-10-02 08:30 | NUR ---
ASSUMED CARE BEDSIDE REPORT FROM LEESA ORTIZ AT 0700. PT INTUBATED AND SEDATED. VENT SETTINGS AC/VC 20/550/18/90%. LUNGS CLEAR. PT OCCASIONALLY BREATHING OVER VENT. SMALL AMOUNT OF THICK TUBBS SECRETIONS VIA ETT. COUGH/GAG/SWALLOW REFLEX. CORNEAL REFLEX INTACT. PRECEDEX, PROPOFOL, VERSED AND FENTANYL GTT FOR PAIN AND SEDATION. HEAVILY SEDATED TO MAINTAIN O2 SATS. Q4 TURNS ALSO D/T O2 SATS. NSR ON MONITOR, RATE 80'S. BP STABLE. GENERALIZED EDEMA, 2+ EXT. TEMP 102.4, COOLING WRAPS IN PLACE. NGT TO RIGHT NARE, DRIED BLOOD IN NARE. TUBE FEEDS AT 20 ML/HR D/T HIGH RESIDUALS. 450 ML THIS AM. ABD DISTENDED, OBESE, HYPOACTIVE BT. DOOLEY PATENT, DRAINING GREEN/YELLOW URINE c SEDIMENT TO GRAVITY. ART LINE TO RIGHT GROIN, LINE FLUSHED AND ZERO'D. GOOD WAVEFORM. CVC TO RIJ. DRESSING C/D/I. WILL CONTINUE TO MONITOR.
[2021-10-02 08:52] LABS: Triglycerides 263 mg/dL (30-140)
--- NOTE | 2021-10-02 17:13 | NUR ---
SHIFT SUMMARY NO ACUTE CHANGES THIS SHIFT. REMAINS INTUBATED AND SEDATED. VENT SETTINGS AC/VC 20/550/18/90%. LUNGS CLEAR. SCANT AMOUNT OF THICK TUBBS SECRETIONS. PROPOFOL, VERSED, PRECEDEX AND FENTANYL GTT FOR PAIN AND SEDATION. PT COUGHS OCCASIONALLY c SUCTIONING. TOLERATED TURNS WELL. ART LINE REMOVED, SITE SOFT, NO HEMATOMA NOTED. CVC REMAINS IN PLACE. PLAN FOR PICC PLACEMENT TODAY. BP AND HR STABLE. TUBE FEED READVANCED TO GOAL OF 35 ML/HR. RESIDUALS 50ML THIS AFTERNOON. BOWEL CARE PERFORMED, NO BM THIS SHIFT. DOOLEY PATENT, DIRUESED, 1300 ML YELLOW URINE c SEDIMENT TO GRAVITY. WILL CONTINUE TO MONITOR UNTIL REPORT TO ONCOMING NURSE.
--- NOTE | 2021-10-02 20:00 | NUR ---
ASSUMED CARE OF PT AT 1915. REPORT RECEIVED AT BEDSIDE. PT PRESENTS IN BED. INTUBATED. MAINTAINING O2 SATURATIONS > 90 PERCENT WITH FIO2 AT 85 PERCENT. NO ADVANTAGES LUNG SOUNDS. CONTINUES ON PROPOFOL AT 35 MCG'S/KG/MIN, VERSED, FENTANYL DRIP FOR SEDATION. PT MAINTAINS SAS 3. WILL REVIEW CHART AND PLAN OF CARE FOR THIS PT.
--- NOTE | 2021-10-03 | NUR ---
PT NOTED, AFTER TURN TO HAVE DESATURATION INTO 60 PERCENT. HAD PRE OXYGENATED PT WITH 100 PERCENT FIO2. DURING THIS TIME, PT HAD BRADYCARDIA WITH RATES INTO 50'S. NOTED ST DEPRESSION. EKG OBTAINED. WHICH PT HAD SUBSEQUENTLY RETURNED TO HEART RATE IN 80'S. NO LONGER NOTEABLE DEPRESSION. DID CALL DR PEARSON TO INFORM HER OF EVENT. ORDERS RECEIVED. WILL CONTINUE TO CLOSELY MONTIOR.
[2021-10-03 05:20] LABS: BASOPHILS ABSOLUTE AUTO 0.06 K/mm3 (0.00-0.23); BASOPHILS PERCENT AUTO 0 % (0-2); EOSINOPHILS PERCENT AUTO 2 % (0-6); Hematocrit 32.6 % (37.0-53.0); Hemoglobin 10.7 g/dL (13.5-17.5); IMMATURE GRAN ABSOLUTE AUTO 0.42 K/mm3 (0.00-0.10); IMMATURE GRAN PERCENT AUTO 3 % (0-1); LYMPHOCYTES ABSOLUTE AUTO 1.31 K/mm3 (0.84-5.20); LYMPHOCYTES PERCENT AUTO 9 % (21-46); MONOCYTES ABSOLUTE AUTO 1.93 K/mm3 (0.16-1.47); MONOCYTES PERCENT AUTO 13 % (4-13); Mean Corpuscular HGB 29.3 pg (26.0-34.0); Mean Corpuscular HGB Conc 32.8 g/dL (31.5-36.5); Mean Corpuscular Volume 89 fL (80-100); Mean Platelet Volume 9.8 fL (9.1-12.4); NEUTROPHILS ABSOLUTE AUTO 10.45 K/mm3 (1.96-9.15); NEUTROPHILS PERCENT AUTO 72 % (41-73); Platelet Count 327 K/mm3 (150-400); RDW Coefficient Variation 13.4 % (11.7-14.2); RDW Standard Deviation 44.2 fL (35.1-46.3); Red Blood Cell Count 3.65 M/mm3 (4.30-5.90); White Blood Cell Count 14.47 K/mm3 (4.00-11.30)
[2021-10-03 05:47] LABS: Magnesium, Blood 2.6 mg/dL (1.6-2.4)
[2021-10-03 06:06] LABS: Alanine Aminotransfer (ALT/SGP 49 U/L (12-78); Albumin, Blood 2.2 g/dL (3.4-5.0); Albumin/Globulin Ratio 0.5 (0.8-1.8); Alk Phos 47 U/L (50-136); Anion Gap 9 mmol/L (6-16); Aspartate Aminotrans (AST/SGOT 50 U/L (12-37); Bilirubin, Total 0.4 mg/dL (0.1-1.0); Blood Urea Nitrogen 36 mg/dL (8-24); Bun/Creatinine Ratio 39.3 (12.0-20.0); CO2, Blood 29 mmol/L (21-32); Calcium, Blood 8.1 mg/dL (8.5-10.1); Chloride, Blood 100 mmol/L (98-108); Creatinine, Blood 0.92 mg/dL (0.60-1.20); Globulin, Blood 4.4 g/dL (2.2-4.0); Glomerular Filtration Rate 113 (60-); Glucose, Blood 122 mg/dL (70-99); Phosphorus, Blood 6.2 mg/dL (2.5-4.9); Potassium, Blood 3.7 mmol/L (3.5-5.5); Sodium, Blood 138 mmol/L (136-145); Total Protein, Blood 6.6 g/dL (6.4-8.2); Vancomycin, Trough 22.4 ug/mL (5.0-10.0)
--- NOTE | 2021-10-03 06:30 | NUR ---
NO FURTHER EPISODES OF BRADYCARDIA. DID HAVE DESATURION WITH ANY MOVEMENTS. HAVE CONTINUED WITH FIO2 AT 100 PERCENT. HAVE ROTATED OXYMETER PLACEMENT Q 2 HOURS. HAS BEEN SOMEWHAT POSITIONAL. NO SKIN ISSUES TO REPORT FROM SATURATION MONITOR PLACEMENTS. WILL CONTINUE TO MONITOR PT, AND WILL REPORT OFF TO ONCOMING RN.
--- NOTE | 2021-10-03 08:30 | NUR ---
ASSUMED CARE BEDSIDE REPORT FROM GEORGIANA ORTIZ AT 0700. PT INTUBATED, SEDATED. VENT SETTINGS AC/VC 20/500/18/100%. LUNGS CLEAR. MODERATE AMOUNT OF THICK TUBBS/YELLOW SECRETIONS THROUGH ETT. PROPOFOL, PRECEDEX, FENTANYL AND VERSED GTT INFUSING FOR SEDATION AND PAIN. PT UNRESPONSIVE. COUGH/GAG/SWALLOW REFLEX. NO MOVEMENT OF EXT NOTED. OCCASIONALLY OPENS EYES, DOES NOT TRACK. NSR, RATE 80'S. BP STABLE. 2+ EDEMA TO EXT. FEBILE, COOLING WRAPS IN PLACE. ABD OBESE, FIRM, DISTENDED. HYPOACTIVE BT. BOWEL CARE GIVEN. NO BM SINCE ADMISSION. DOOLEY PATENT, DRAINING YELLOW URINE c SEDIMENT TO GRAVITY. CVC TO RIJ, TO BE REMOVED THIS SHIFT. PICC TO E, DRESSING C/D/I. WILL CONTINUE TO MONITOR.
[2021-10-03 10:12] LABS: Source, Urine Foley catheter
[2021-10-03 10:14] LABS: PCO2 Arterial 41.8 mmHg (35-45); PO2 Arterial 64.6 mmHg (80-100); pH Blood Arterial 7.42 (7.35-7.45)
[2021-10-03 10:43] LABS: Bilirubin, Urine Neg (Neg); Blood, Urine 5+ (Neg); Color, Urine Yellow (P-Yellow); Glucose Qualitative, Urine Neg (Neg); Ketones, Urine Neg (Neg); Leukocyte Esterase, Urine Neg (Neg); Nitrite, Urine Neg (Neg); Protein, Urine 1+ (Neg); Urobilinogen, Urine NORM (Normal)
[2021-10-03 11:27] LABS: Appearance, Urine Hazy (Clear)
[2021-10-03 11:29] LABS: Red Blood Cells, Urine TNTC /hpf (0-2); White Blood Cells, Urine 0-2 /hpf (0-5)
[2021-10-03 11:30] LABS: Amorphous Mod (0-Heavy); Bacteria Mod /hpf; Hyaline Casts 0-2 /lpf (0-2); Mucus Light (0-Heavy); Squamous Epithelial Cells Rare /hpf (Few)
--- NOTE | 2021-10-03 11:52 | NUR ---
CT CHEST PT TO IMAGING FOR CHEST CT c CONTRAST. NO DESAT ON TRANSPORT. NGT c PURULENT DRAINAGE. SUCTIONED MODERATE AMOUNT OF DRAINAGE FROM NARES BILATERALLY. WILL IRRIGATE c AFRIN. REMOVED, OGT PLACE, VERIFIED PLACEMENT c IMAGING. TUBE FEEDS RESTARTED. WILL GIVE LACTOLOSE FOR CONSTIPATION. REVERSE TRENDELENBURG FOR INCREASED AVEOLI RECRUITMENT PER DR PEARSON. TOLERATING WELL. VENT SETTINGS ADJUSTED AC/VC 20/450/20/100%. WILL CONTINUE TO MONITOR.
--- NOTE | 2021-10-03 16:07 | NUR ---
PRONE PT CONTINUED TO DESAT TO MID 80'S. DR PEARSON AT BEDSIDE. PT PLACED IN PRONE POSITION c [facility] STAFF MEMBERS. PT TOLERATED WELL. O2 SATS MID 90'S. DRESSINGS PLACED ON PRESSURE POINTS. LACRILUBE ORDERED. NIMBEX STARTED. TO4 4/4 AT THIS TIME. PT OVER BREATHING VENT. POSSIBLE TRANSFER TO [facility]. WILL CONTINUE TO MONITOR.
--- NOTE | 2021-10-03 17:23 | NUR ---
SHIFT SUMMARY PT REMAINS INTUBATED AND SEDATED. VENT SETTINGS AC/VC 20/450/20/100%. LUNGS COARSE ON LEFT SIDE, CLEAR ON RIGHT. LARGE AMOUNT OF THICK PURULENT SECRETIONS VIA ETT AND BILATERAL NARES. PROPOFOL, PRECEDEX, FENTANYL GTT FOR SEDATION AND PAIN, NIMBEX GTT FOR PARALYTIC. TOF 0/4 BUT WHEN NIMBEX LOWERED, PT WAS MOVING HEAD WHILE SUCTIONING. COMPLIANT c VENT. BIS HIGH 30'S. WILL TITRATE SEDATION DOWN. PT IN PRONE POSITION, SEE PREVIOUS NOTE, TOLERATING WELL, O2 SATS HIGH 90'S. SR, RATE 80'S, BP STABLE. TUBE FEEDS AT GOAL, 150 ML RESIDUALS. BOWEL CARE PERFORMED, LIQUID BROWN STOOL OUT, RECTAL TUBE PLACED. DOOLEY PATENT, DRAINED 1200 ML YELLOW URINE c SEDIMENT TO GRAVITY. TEMP STABILIZED, 100.4, COOLING WRAPS REMOVED. PICC TO LUE, DRESSING C/D/I. CVC NOT REMOVED THIS SHIFT D/T PT NOT TOLERATING SUPINE POSITION. AWAITING POSSIBLE TRANSFER. WILL CONTINUE TO MONITOR UNTIL REPORT TO ONCOMING NURSE.
[2021-10-03 18:15] LABS: PCO2 Arterial 49.3 mmHg (35-45); PO2 Arterial 115 mmHg (80-100); pH Blood Arterial 7.36 (7.35-7.45)
--- NOTE | 2021-10-03 19:27 | NUR ---
ASSUMPTION OF CARE PT REMAINS INTUBATED, SEDATED AND PARALYZED. VENT SETTINGS AC/VC 20/450/20/100%. HE IS RECEIVING PROPOFOL 35MCG/KG/MIN, PRECEDEX 1.4MCG/KG/HR, NIMBEX 2MCG/KG/MIN, FENTANYL 75MCG/HR, AND NS TKO. HE HAS BEEN PRONED SINCE THIS AFTERNOON. CORE TEMP 100.8. DOOLEY PATENT AND DRAINING CLOUDY YELLOW URINE WITH SEDIMENT. RECTAL TUBE IN PLACE DRAINING LIQUID BROWN STOOL. PLAN TO TRANSFER TO [facility]. SEE SHIFT ASSESSMENT.
--- NOTE | 2021-10-03 20:15 | NUR ---
TRANSFER TO [facility] [employer] AT BEDSIDE AT THIS TIME. PT REMAINS INTUBATED WITH VENT SETTINGS AC/VC 20/450/20/100%. CURRENT GTTS: NIMBEX 2MCG/KG/MIN, PROPOFOL 35MCG/KG/MIN, PRECEDEX 1.4MCG/KG/HR, FENTANYL 75MCG/HR, AND NS TKO. BIS REMAINS IN 30S. TOF 0/4-2/4. DOOLEY DRAINING CLOUDY YELLOW URINE WITH SEDIMENT. RECTAL TUBE DRAINING LIQUID BROWN STOOL. NSR ON MONITOR WITH HR 70S. SBP 110S. TUBE FEEDING STOPPED, OGT CLAMPED. CENTRAL LINE REMAINS IN [facility], PICC TO AB. PT MOVED TO [facility]IA [facility] AND MULTIPLE STAFF MEMBERS PRESENT WITH RT AT HEAD OF BED. PT TOLERATED WELL. VS REMAINED STABLE, NO COMPLICATIONS WITH VENT. PT IN HELICOPTER AT 2047. PLAN TO TRANSFER TO [facility] NEURO ICU ROOM 18. REPORT CALLED TO ANTOINETTE ORTIZ. PT'S MOTHER JADE CALLED AND UPDATED.
== END 2021-10-03 20:48 | disposition short-term general hospital (02) | DRG 207 ==
LOC: ICUE 12:01
PROVIDERS: Internal Medicine Critical Care Medicine; Student in an Organized Health Care Education/Training Program; ADMIT Internal Medicine
PROC: 5A1955Z Respiratory Ventilation, Greater than 96 Consecutive Hours (ICD-10-PCS; principal; 2021-09-27)
PROC: 0BH17EZ Insertion of Endotracheal Airway into Trachea, Via Natural or Artificial Opening (ICD-10-PCS; 2021-09-27)
PROC: 5A12012 Performance of Cardiac Output, Single, Manual (ICD-10-PCS; 2021-09-27)
PROC: 3E03329 Introduction of Other Anti-infective into Peripheral Vein, Percutaneous Approach (ICD-10-PCS; 2021-09-27)
PROC: 04HY32Z Insertion of Monitoring Device into Lower Artery, Percutaneous Approach (ICD-10-PCS; 2021-09-27)
PROC: 4A133B1 Monitoring of Arterial Pressure, Peripheral, Percutaneous Approach (ICD-10-PCS; 2021-09-27)
PROC: 4A133J1 Monitoring of Arterial Pulse, Peripheral, Percutaneous Approach (ICD-10-PCS; 2021-09-27)
PROC: 3E033XZ Introduction of Vasopressor into Peripheral Vein, Percutaneous Approach (ICD-10-PCS; 2021-09-27)
DX: J15.6 Pneumonia due to other Gram-negative bacteria (principal); A41.59 Other Gram-negative sepsis; J96.01 Acute respiratory failure with hypoxia; G92.8 Other toxic encephalopathy; J96.02 Acute respiratory failure with hypercapnia; I46.9 Cardiac arrest, cause unspecified; A40.0 Sepsis due to streptococcus, group A; A40.1 Sepsis due to streptococcus, group B; R65.20 Severe sepsis without septic shock; E66.2 Morbid (severe) obesity with alveolar hypoventilation; K56.0 Paralytic ileus; M96.89 Other intraoperative and postprocedural complications and disorders of the musculoskeletal system; Z20.822 Contact with and (suspected) exposure to COVID-19; J15.4 Pneumonia due to other streptococci; J15.3 Pneumonia due to streptococcus, group B; K59.00 Constipation, unspecified; E11.9 Type 2 diabetes mellitus without complications; E78.1 Pure hyperglyceridemia; F20.9 Schizophrenia, unspecified; F15.10 Other stimulant abuse, uncomplicated; Y84.8 Other medical procedures as the cause of abnormal reaction of the patient, or of later complication, without mention of misadventure at the time of the procedure
CPT/HCPCS: 0241U; 31720; 36415; 36569; 36600; 36620; 51702; 71045; 71260; 74177; 80048; 80053; 80069; 80076; 80202; 81001; 82248; 82803; 82947; 83615; 83690; 83735; 83880; 84100; 84145; 84478; 84484; 85025; 87040; 87070; 87077; 87086; 87147; 87185; 87186; 87205; 92950; 93005; 93010; 93306; 93308; 93321; 93970; 94002; 94003; 94762; A9270; C1751; C9113; J0171; J0282; J0295; J0696; J1630; J1650; J1815; J1940; J2060; J2185; J2212; J2250; J2370; J2543; J2704; J2765; J2997; J3010; J3370; J7030; J7040; J7050; J7060; Q9967